=== PATIENT | male | born 1995 | race African-American/Black ===

== ENCOUNTER 2021-05-11 22:05 | Emergency (ER) | payer OTHER, SELFPAY ==
--- NOTE | ~2021-05-11 | XR_ITS ---
EXAMINATION: XR chest 1V portable DATE: 05/11/2021 23:00 INDICATION: Shortness of breath and cough. COVID-19 positive. TECHNIQUE: A single frontal view of the chest was obtained. COMPARISON: None. FINDINGS: There are patchy airspace opacities in the mid and lower lung zones. No pleural effusion or pneumothorax. The heart size is normal. IMPRESSION: 1. Patchy airspace opacities in the mid and lower lung zones, consistent with COVID-19 pneumonia. Reviewed, dictated and finalized at location A. IMPRESSION: 1. Patchy airspace opacities in the mid and lower lung zones, consistent with C OVID-19 pneumonia.
[2021-05-11 22:13] VITALS: BP 150/85; PULSE 87; RESP 18; TEMP 36.2; O2SAT 95
--- NOTE | 2021-05-11 22:15 | ECG_ITS ---
Measurements Intervals [place] Rate: 78 P: 44 MN: 155 QRS: 49 QRSD: 104 T: 26 QT: 346 QTc: 396 Interpretive Statements SINUS RHYTHM BASELINE WANDER- III, AVF NORMAL ECG Electronically Signed On 05-12-2021 6:29:55 CDT by Wellington Martinez D.O.
[2021-05-11 22:36] LABS: Basophils Percent Auto 0.3 % (0.2-1.2); Hematocrit 45.6 % (42.0-52.0); Hemoglobin 15.1 g/dL (14.0-18.0); Immature Granulocyte Absolute 0.04 K/mm3 (0.00-0.031); Immature Granulocyte Percent A 0.5 % (0-0.5); Lymphocytes Absolute Auto 1.81 K/mm3 (0.9-3.2); Lymphocytes Percent Auto 23.8 % (18.3-44.2); Mean Corpuscular HGB Conc 33.1 g/dl (32-36); Mean Corpuscular Hemoglobin 25.2 pg (26-34); Mean Corpuscular Volume 76.1 fl (80-100); Mean Platelet Volume 9.8 fl (7.4-10.4); Monocytes Absolute Auto 1.1 K/mm3 (0.1-0.6); Monocytes Percent Auto 14.9 % (2.6-8.5); Neutrophils Absolute Auto 4.6 K/mm3 (1.3-6.7); Neutrophils Percent Auto 60.5 % (45.5-73.1); Platelet Count Result 190 k/mm3 (150-375); Red Blood Count 5.99 M/mm3 (4.6-6.20); Red Cell Distribution Width 13.8 % (11.5-14.5); White Blood Count 7.6 K/mm3 (4.5-10.0)
[2021-05-11 22:55] LABS: Anion Gap 12 mmol/L (8-16); Blood Urea Nitrogen 12 mg/dL (9-20); Calcium 8.4 mg/dL (8.4-10.2); Carbon Dioxide 26 mmol/L (22-30); Chloride 99 mmol/L (98-107); Estimated CRCL calculation 87 ml/min; Estimated Glomerular Filt Rate > 60; Glucose 113 mg/dL (65-110); Potassium 3.9 mmol/L (3.4-5.0); Sodium 137 mmol/L (137-145)
[2021-05-12 00:40] VITALS: BP 148/75; PULSE 76; PULSE 78; RESP 17; TEMP 37.2; O2SAT 96; O2SAT 97
[2021-05-12 00:46] VITALS: BP 148/75; PULSE 81; RESP 22; O2SAT 95
[2021-05-12 01:01] VITALS: BP 122/74; PULSE 79; RESP 23; O2SAT 95
[2021-05-12 01:17] VITALS: BP 123/84; PULSE 94; RESP 15; O2SAT 90
[2021-05-12 01:31] VITALS: BP 125/72; PULSE 78; RESP 20; O2SAT 93
[2021-05-12] MEDS: BENZONATATE 100 MG CAPSULE 200 MG PO (01:36)
--- NOTE | 2021-05-12 01:47 | ED.SOB ---
HPI - SOB/Dyspnea General Chief Complaint: Shortness of Breath/Dyspnea Stated Complaint: covid +, SOB Time Seen by Provider: 05/12/21 00:59 History of Present Illness HPI Narrative: Patient is a 26-year-old male who presents ER with cough and shortness of breath. Has been persistent since being diagnosed with COVID-19 on 05/02/2021. Feels like when he lays down he has episodes of rapid breathing. Reports he is no longer having fevers or chills. No chest pain or pressure. Related Data Allergies Allergy/AdvReac Type Severity Reaction Status Date / Time No Known Allergies Allergy Unverified 05/12/21 00:47 Review of Systems Review of Systems: All systems reviewed & are unremarkable except as noted in HPI and below Constitutional: Constitutional: Denies chills, Denies fever(s) and Denies weakness ENT: Denies nasal congestion and Denies sore throat Cardiovascular: Cardiovascular: Denies chest pain and Denies radiating jaw, neck or arm pain Respiratory: Respiratory: Reports cough, Reports dyspnea and Denies wheezing Gastrointestinal: Gastrointestinal: Denies abdominal pain, Denies nausea and Denies vomiting PMFSH Past Medical History Medical History (Updated 05/12/21 @ 01:52 by Demetrius Maria MD) Healthy male adult Surgical History Surgical History (Updated 05/12/21 @ 01:50 by Demetrius Maria MD) No pertinent past surgical history Social History Social History (Updated 05/12/21 @ 01:51 by Demetrius Maria MD) Smoking status: Never smoker Exam Narrative: GENERAL: Well-appearing, well-nourished, and in no acute distress. HEAD: Normocephalic, atraumatic. Eyes: PERRL, EOMI. ENT: Moist mucous membranes. CHEST: Clear to auscultation. No respiratory distress. HEART: Regular rate and rhythm. Normal peripheral pulses. ABDOMEN: Soft, nontender, nondistended. EXTREMITIES: Normal range of motion. No edema. NEURO: Alert and oriented x3. PSYCH: Normal mood and affect. Course Course Emergency Course: Informed results. No hypoxia here. Discharged with albuterol. Vital Signs Vital signs: Vital Signs Temperature 97.2 F L 05/11/21 22:13 Pulse Rate 87 05/11/21 22:13 Respiratory Rate 18 05/11/21 22:13 Blood Pressure 150/85 H 05/11/21 22:13 Pulse Oximetry 95 05/11/21 22:13 Temperature 99 F 05/12/21 00:40 Pulse Rate 78 05/12/21 01:31 Respiratory Rate 20 05/12/21 01:31 Blood Pressure 125/72 05/12/21 01:31 Pulse Oximetry 93 05/12/21 01:31 MDM - SOB/Dyspnea Lab Data Result diagrams: 05/11/21 22:26 05/11/21 22:26 Labs: Lab Results 05/11/21 05/11/21 Range/Units 22:26 22:26 WBC 7.6 (4.5-10.0) K/mm3 RBC 5.99 (4.6-6.20) M/mm3 Hgb 15.1 (14.0-18.0) g/dL Hct 45.6 (42.0-52.0) % MCV 76.1 L (80-100) fl MCH 25.2 L (26-34) pg MCHC 33.1 (32-36) g/dl RDW 13.8 (11.5-14.5) % Plt Count 190 (150-375) k/mm3 MPV 9.8 (7.4-10.4) fl Immature Gran % (Auto) 0.5 (0-0.5) % Neut % (Auto) 60.5 (45.5-73.1) % Lymph % (Auto) 23.8 (18.3-44.2) % [place] % (Auto) 14.9 H (2.6-8.5) % Eos % (Auto) 0.0 (0-4.4) % Baso % (Auto) 0.3 (0.2-1.2) % Lymph # (Auto) 1.81 (0.9-3.2) K/mm3 [place] # (Auto) 1.1 H (0.1-0.6) K/mm3 Eos # (Auto) 0.0 (0-0.3) K/mm3 Baso # (Auto) 0.0 (0.0-0.1) K/mm3 Abs Immat Gran (auto) 0.04 H (0.00-0.031) K/mm3 Absolute Neuts (auto) 4.6 (1.3-6.7) K/mm3 Absolute Nucleated RBC 0.0 (0.0-0.012) K/mm3 Nucleated RBC % 0.0 (0.0-0.2) % Sodium 137 (137-145) mmol/L Potassium 3.9 (3.4-5.0) mmol/L Chloride 99 (98-107) mmol/L Carbon Dioxide 26 (22-30) mmol/L Anion Gap 12 (8-16) mmol/L BUN 12 (9-20) mg/dL Creatinine 1.10 (0.7-1.3) mg/dL Estim Creat Clear Calc 87 ml/min Estimated GFR > 60 (59 - ) Glucose 113 H (65-110) mg/dL Calcium 8.4 (8.4-10.2) mg/dL Imaging Data Radiologist's impression: ITS Impressions Chest X-R
[2021-05-12 02:05] VITALS: BP 119/69; PULSE 78; RESP 24; O2SAT 96
== END 2021-05-12 02:08 | disposition home or self-care (01) ==
PROVIDERS: Emergency Provider Emergency Medicine
DX: U07.1 COVID-19 (principal); J12.82 Pneumonia due to coronavirus disease 2019
CPT/HCPCS: 36415; 71045; 80048; 85025; 93005; 99284; A9270

== ENCOUNTER 2021-07-14 10:57 | Emergency (ER) | payer SELFPAY ==
--- NOTE | ~2021-07-14 | XR_ITS ---
EXAMINATION: XR knee LT 3V DATE: 07/14/2021 13:10 INDICATION: Left knee pain TECHNIQUE: Four views of the left knee were obtained. COMPARISON: None. FINDINGS: Alignment is normal. No fracture or osteochondral lesion. Joint spaces are normal with no e rosions. There is a moderate-sized knee joint effusion. There is an orthopedic clip in the lateral f emoral condyle. The inferior portion of the clip is discontinuous. A second orthopedic clip projects in the soft tissues adjacent to the lateral condyle of the femur. IMPRESSION: 1. Fracture orthopedic clip in the lateral femoral condyle and likely displaced orthopedic clip in th e soft tissues lateral to the distal femur without acute osseous abnormality. Reviewed, dictated and finalized at location B. IMPRESSION: 1. Fracture orthopedic clip in the lateral femoral condyle and likely displaced orthopedic clip in the soft tissues lateral to the distal femur without acute osseous abnormality.
[2021-07-14 12:25] VITALS: BP 143/83; PULSE 73; RESP 20; TEMP 36.3; O2SAT 98
--- NOTE | 2021-07-14 13:04 | ED.LOWEXIN ---
HPI - Extremity Injury (Lower) General Chief Complaint: Extremity Injury, Lower Stated Complaint: knee injury Time Seen by Provider: 07/14/21 12:28 History of Present Illness HPI Narrative: Patient is a 26-year-old male who presents ER with left knee pain. Reports he was playing basketball 2 weeks ago when he had strain to the medial aspect of the knee. He has been icing his knee and is only had moderate improvement in his pain. No limitation range of motion. No lower extremity numbness or tingling. No additional injury at this time. Related Data Home Medications Medication Instructions Recorded Confirmed multivitamin [Daily Multivitamin] 1 tablet PO DAILY 07/14/21 07/14/21 Allergies Allergy/AdvReac Type Severity Reaction Status Date / Time No Known Allergies Allergy Unverified 07/14/21 12:28 Review of Systems Constitutional: Constitutional: Denies chills and Denies fever(s) Musculoskeletal: Musculoskeletal: Denies back pain, Reports arthralgias, Denies joint swelling and Denies muscle cramps Neurologic: Denies focal weakness and Denies numbness PMFSH Past Medical History Medical History (Updated 07/14/21 @ 14:03 by Demetrius Maria MD) Healthy male adult Surgical History Surgical History (Updated 05/12/21 @ 01:50 by Demetrius Maria MD) No pertinent past surgical history Social History Social History (Updated 05/12/21 @ 01:51 by Demetrius Maria MD) Smoking status: Never smoker Exam Narrative: GENERAL: Well-appearing, well-nourished, and in no acute distress. HEAD: Normocephalic, atraumatic. EXTREMITIES: Normal range of motion. No edema. Mild tenderness over the MCL of the left knee without joint tenderness anteriorly. No tenderness over the patella. No effusion of the left knee. SKIN: Warm, dry, no rash. NEURO: Alert and oriented x3. PSYCH: Normal mood and affect. Course Course Emergency Course: Discussed fractured hardware in knee. No additional concerns. Discharge home. Vital Signs Vital signs: Vital Signs Temperature 97.4 F L 07/14/21 12:25 Pulse Rate 73 07/14/21 12:25 Respiratory Rate 20 07/14/21 12:25 Blood Pressure 143/83 H 07/14/21 12:25 Pulse Oximetry 98 07/14/21 12:25 Temperature 97.4 F L 07/14/21 12:25 Pulse Rate 73 07/14/21 12:25 Respiratory Rate 20 07/14/21 12:25 Blood Pressure 143/83 H 07/14/21 12:25 Pulse Oximetry 98 07/14/21 12:25 MDM - Extremity Injury (Lower) Imaging Data Radiologist's impression: ITS Impressions Knee X-Ray 07/14/21 13:12 IMPRESSION: 1. Fracture orthopedic clip in the lateral femoral condyle and likely displaced orthopedic clip in the soft tissues lateral to the distal femur without acute osseous abnormality. Discharge Plan Discharge Clinical Impression: MCL sprain of left knee Patient Disposition: Home, Self-Care Condition: Stable Instructions: Antibiotic Form, Knee Sprain (ED) Additional Instructions: Return to the ER if you suffer new injury, you have chest pain or shortness of breath, you cannot keep down food or water, you have additional concerns. Prescriptions: New naproxen 375 mg tablet 375 mg PO BID Qty: 14 RF: 0 No Action multivitamin [Daily Multivitamin] Tablet 1 tablet PO DAILY RF: 0 Follow-up/Referrals: Pillo Saunders MD [Physician] - 1 Week PHYSICIAN,MEDICAL SUPPORT ASSISTANT [Primary Care Provider] -
[2021-07-14 14:33] VITALS: BP 141/83; PULSE 88; RESP 20; O2SAT 99
== END 2021-07-14 14:33 | disposition home or self-care (01) ==
PROVIDERS: Emergency Provider Emergency Medicine
DX: S83.92XA Sprain of unspecified site of left knee, initial encounter (principal); X50.0XXA Overexertion from strenuous movement or load, initial encounter
CPT/HCPCS: 73562; 99283